=== PATIENT | male | born 2000 | race Caucasian/White ===

== ENCOUNTER 2020-01-28 19:02 | Emergency (ER) | payer BC ==
--- OUTSIDE RECORDS SUMMARY | 2020-01-28 19:04 | XMS REPORT | Continuity of Care Document ---
:2000 Author Organization [facility] Address [address] [place] [address] Care Team Providers Name Role Phone Asked, Pcp Primary Care Physician Unavailable Renetta Thompson PA-C Attending Clinician Problems This patient has no known problems. Allergies, Adverse Reactions, Alerts This patient has no known allergies or adverse reactions. Social History Social Habit Start Date Stop Date Quantity Comments Source Sex Assigned At [facility] ethodist Tobacco use and 2016-01-31 2016-01-31 Never used [facility]ist exposure 00:00:00 00:00:00 Alcohol intake 2016-01-31 2016-01-31 Current [facility] thodist 00:00:00 00:00:00 non-drinker of alcohol (finding) Smoking Status Start Date Stop Date Source Never smoker [facility] Medications Ordered Filled Start Stop Current Ordering Indication Dosage Frequency Signature Comments Components Source Medication Medication Date Date Medication? Clinician (SIG) Name Name acetaminoph 2015-03 Yes 325mg Q6H Take 325 [place] en 1-18 mg by [facility] (TYLENOL) 11:40: mouth st 325 MG 40 every 6 tablet (six) hours as needed for fever. naproxen 2015-03 Yes 250mg Q.5D Take 250 [place] (NAPROSYN) 1-18 mg by [facility] 250 MG 11:40: mouth 2 st tablet 07 (two) times a day with meals. Procedures This patient has no known procedures. Plan of Care Planned Activity Planned Date Details Comments Source Future Scheduled 2019-10-14 INFLUENZA VACCINE [facility] 00:00:00 [code = INFLUENZA VACCINE] Encounters Start End Encounter Admission Attending Care Care Encounter Source Date/Time Date/Time Type Type Clinicians Facility Department ID 2019-05-26 2019-05-26 Telephone [facility] [id number] 00:00:00 00:00:00 , Barbi Prescott [id number] Pediatric [id number] [facility] [id number] 2018-12-02 2018-12-02 Office [facility] [place] [facility] [id number] 12:42:00 14:09:53 Visit , Barbi Prescott [id number] Pediatric [id number] [facility] [id number] 225 Results This patient has no known results.
--- OUTSIDE RECORDS SUMMARY | 2020-01-28 19:04 | XMS REPORT | Clinical Summary ---
:2000 Author Organization [facility] Address [address] [place] [address] Care Team Providers Name Role Phone Asked, No Pcp Primary Care Provider Unavailable Allergies No Known Active Allergies Medications Medication Sig Dispensed Refills Start Date End Date Status naproxen (NAPROSYN) 250 Take 250 mg by 0 Active MG tablet mouth 2 (two) times a day with meals. acetaminophen (TYLENOL) Take 325 mg by 0 Active 325 MG tablet mouth every 6 (six) hours as needed for fever. Active Problems No known active problems Surgical History Surgery Date Site/Laterality Comments PATENT FORAMEN [facility] CLOSURE Social History Tobacco Use Types Packs/Day Years Used Date Never Smoker Smokeless Tobacco: Never Used Alcohol Use Drinks/Week oz/Week Comments No Sex Assigned at Date Recorded Not on file Growth Chart Information Age Height Weight Head Circum Date 15 years 172.7 cm (5' 8") 65.8 kg (145 lb) 016 15 years 170.2 cm (5' 7") 64.4 kg (142 lb) 016 Last Filed Vital Signs Not on file Plan of Treatment Health Maintenance Due Date Last Done Comments INFLUENZA VACCINE 10/14/2019 Results Not on fileafter 01/27/2019 Advance Directives For more information, please contact: [phone] Type Date Recorded Patient Student Advisor Explanati on Advance Directives, Living Will and Medical Power of Security Guard Supervisor
--- NOTE | 2020-01-28 20:14 | ER ---
Nurse's Notes 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 Burning with urination, ca1 urinary urgency x 1.5 - 2 wks. Denies fever. N/V today. Coronavirus screen: Client denies travel out of the [place] in the last 14 days. At this time, the client does not indicate any symptoms associated with coronavirus-19. Ebola Screen: Patient negative for fever greater than or equal to 101.5 degrees Fahrenheit, and additional compatible Ebola Virus Disease symptoms Patient denies exposure to infectious person. Patient denies travel to an Ebola-affected area in the 21 days before illness onset. No symptoms or risks identified at this time. Initial Sepsis Screen: Does the patient meet any 2 criteria? No. Patient's initial sepsis screen is negative. Does the patient have a suspected source of infection? No. Patient's initial sepsis screen is negative. Risk Assessment: Do you want to hurt yourself or someone else? Patient reports no desire to harm self or others. Onset of symptoms was January 28, 2020. 19:23 Method Of Arrival: Ambulatory ca1 19:23 Acuity: SANDI 3 ca1 Historical: - Allergies: 19:27 Keppra; ca1 - Home Meds: 19:27 venlafaxine oral oral [Active]; risperidone oral oral [Active]; ca1 - PMHx: 19:27 ADD/ADHD; ca1 - PSHx: 19:27 Heart Surgery; ca1 - Immunization history:: Adult Immunizations up to date, Flu vaccine is not up to date. Patient has never been vaccinated. - Social history:: Smoking status: Patient denies any tobacco usage or history of. Screenin:31 Abuse screen: Denies threats or abuse. Denies injuries from another. Nutritional lp1 screening: No deficits noted. Tuberculosis screening: No symptoms or risk factors identified. Fall Risk None identified. Assessment: 19:30 General: Appears in no apparent distress. comfortable, Behavior is appropriate for age. lp1 Pain: Complains of pain in left low back Pain currently is 6 out of 10 on a pain scale. Neuro: Level of Consciousness is awake, alert, obeys commands, Oriented to person, place, time, situation. Cardiovascular: Patient's skin is warm and dry. Respiratory: Respiratory effort is even, unlabored. GI: Abdomen is flat, Reports vomiting, x1. : Reports burning with urination, inability to void, pain in left flank(s), urinary frequency. EENT: No signs and/or symptoms were reported regarding the EENT system. Derm: Skin is pink, warm \T\ dry. Musculoskeletal: No deficits noted. 19:48 Reassessment: Patient unable to given urine specimen, provider okay for patient to lp1 drink water. 20:07 Reassessment: Urine specimen collected, noted to be orange in color; patient reports lp1 taking Azo OTC. Vital Signs: 19:23 BP 127 / 69; Pulse 61; Resp 17 S; Temp 97.9(TE); Pulse Ox 100% on R/A; Weight 70.31 kg ca1 (R); Height 5 ft. 9 in. (175.26 cm) (R); Pain 2/10; 19:23 Body Mass Index 22.89 (70.31 kg, 175.26 cm) ca1 ED Course: 19:03 Patient arrived in ED. ag5 19:06 [facility]C [facility] kb 19:06 Campos Cifuentes MD is Attending Physician. kb 19:19 Rosalie Flower, RN is Primary Nurse. lp1 19:26 Triage completed. ca1 19:27 Arm band placed on right wrist. ca1 19:31 Patient has correct armband on for positive identification. lp1 20:11 Urine Microscopic Only Sent. ds4 20:18 No provider procedures requiring assistance completed. Patient did not have IV access lp1 during this emergency room visit. Administered Medications: 20:18 Drug: Augmentin 875 mg Route: PO; lp1 20:18 Follow up: Response: Medication administered at discharge. lp1 Outcome: 20:13 Discharge ordered by . kb 20:18 Discharged to home ambulatory, with family. lp1 20:18 Condition: good 20:18 Discharge instructions given to patient, Instructed on discharge instructions, follow up and referral plans. medication usage, Demonstrated understanding of instructions, follow-up care, medications, Prescriptions given X 1. 20:18 Patient left the ED. lp1 Signatures: Laurie Prescott FNP-C FNP-Ckb Pena, Laura, RN RN lp1 Talon Milian ds4 Janey Cadena RN RN ca1 Miguel Fitzpatrick ag5
--- NOTE | 2020-01-28 20:14 | EDPHYS ---
Physician Documentation [facility] Name: Dino Rayo Age: 19 yrs Sex: Male : 2000 Arrival Date: 01/28/2020 Time: 19:03 Bed 5 Private MD: ED Physician Campos Cifuentes HPI: 01/27 20:20 This 19 yrs old Male presents to ER via Ambulatory with complaints of Kidney kb Problem. 20:20 The patient presents with urinary symptoms, dysuria, urinary frequency. Onset: The kb symptoms/episode began/occurred 1.5 week(s) ago. Modifying factors: The symptoms are alleviated by nothing, the symptoms are aggravated by urinating. Associated signs and symptoms: Pertinent positives: dysuria, Pertinent negatives: abdominal pain, constipation, diarrhea, fever, hematuria, nausea, vomiting. Severity of symptoms: At their worst the symptoms were moderate, in the emergency department the symptoms are unchanged. The patient has not experienced similar symptoms in the past. The patient has not recently seen a physician. Pt reports frequency, urgency and dysuria for 1.5 weeks. Denies penile drainage, unprotected sexual intercourse. . Historical: - Allergies: 19:27 Keppra; ca1 - Home Meds: 19:27 venlafaxine oral oral [Active]; risperidone oral oral [Active]; ca1 - PMHx: 19:27 ADD/ADHD; ca1 - PSHx: 19:27 Heart Surgery; ca1 - Immunization history:: Adult Immunizations up to date, Flu vaccine is not up to date. Patient has never been vaccinated. - Social history:: Smoking status: Patient denies any tobacco usage or history of. ROS: 20:18 Constitutional: Negative for fever, chills, and weight loss, Cardiovascular: Negative kb for chest pain, palpitations, and edema, Respiratory: Negative for shortness of breath, cough, wheezing, and pleuritic chest pain, Abdomen/GI: Negative for abdominal pain, nausea, vomiting, diarrhea, and constipation, MS/Extremity: Negative for injury and deformity, Skin: Negative for injury, rash, and discoloration, Neuro: Negative for headache, weakness, numbness, tingling, and seizure. 20:18 : Positive for urinary symptoms, urinary frequency, burning with urination. Exam: 20:18 Constitutional: This is a well developed, well nourished patient who is awake, alert, kb and in no acute distress. Head/Face: Normocephalic, atraumatic. Chest/axilla: Normal chest wall appearance and motion. Nontender with no deformity. No lesions are appreciated. Cardiovascular: Regular rate and rhythm with a normal S1 and S2. No gallops, murmurs, or rubs. Normal PMI, no JVD. No pulse deficits. Respiratory: Lungs have equal breath sounds bilaterally, clear to auscultation and percussion. No rales, rhonchi or wheezes noted. No increased work of breathing, no retractions or nasal flaring. Abdomen/GI: Soft, non-tender, with normal bowel sounds. No distension or tympany. No guarding or rebound. No evidence of tenderness throughout. Back: No spinal tenderness. No costovertebral tenderness. Full range of motion. Skin: Warm, dry with normal turgor. Normal color with no rashes, no lesions, and no evidence of cellulitis. MS/ Extremity: Pulses equal, no cyanosis. Neurovascular intact. Full, normal range of motion. Neuro: Awake and alert, GCS 15, oriented to person, place, time, and situation. Cranial nerves II-XII grossly intact. Motor strength 5/5 in all extremities. Sensory grossly intact. Cerebellar exam normal. Normal gait. Vital Signs: 19:23 BP 127 / 69; Pulse 61; Resp 17 S; Temp 97.9(TE); Pulse Ox 100% on R/A; Weight 70.31 kg ca1 (R); Height 5 ft. 9 in. (175.26 cm) (R); Pain 2/10; 19:23 Body Mass Index 22.89 (70.31 kg, 175.26 cm) ca1 MDM: 19:14 Patient medically screened. kb 20:18 Data reviewed: vital signs, nurses notes. Data interpreted: Pulse oximetry: on room air kb is 100 %. Interpretation: normal. Counseling: I had a detailed discussion with the patient and/or guardian regarding: the historical points, exam findings, and any diagnostic results supporting the discharge/admit diagnosis, lab results, the need for outpatient follow up, a family practitioner, to return to the emergency department if symptoms worsen or persist or if there are any questions or concerns that arise at home. 01/27 19:28 Order name: Urine Microscopic Only kb 11/15 20:11 Order name: Urine Dipstick--Ancillary (enter results); Complete Time: 20:17 ds4 01/27 19:28 Order name: Urine Dipstick-Ancillary (obtain specimen); Complete Time: 20:07 kb Administered Medications: 20:18 Drug: Augmentin 875 mg Route: PO; lp1 20:18 Follow up: Response: Medication administered at discharge. lp1 Disposition: 01/28 02:12 Co-signature as Attending Physician, Campos Cifuentes MD. 7 Disposition: 01/28/20 20:13 Discharged to Home. Impression: Urinary tract infection, site not specified. - Condition is Stable. - Discharge Instructions: Urinary Tract Infection, Adult, [id number]. - Prescriptions for Augmentin 875- 125 mg Oral Tablet - take 1 tablet by ORAL route every 12 hours for 10 days; 20 tablet. - Medication Reconciliation Form, Thank You Letter, Antibiotic Education, Prescription Opioid Use form. - Follow up: Emergency Department; When: As needed; Reason: Worsening of condition. Follow up: Private Physician; When: 2 - 3 days; Reason: Recheck today's complaints, Continuance of care, Re-evaluation by your physician. Signatures: Dispatcher [employer] EDLaurie Cifuentes, AMRITA-C SAVE ALL OPERATOR-Rosalie Sharma RN RN [facility] Janey Cadena RN RN [facility] Campos Cifuentes MD MD [facility] Corrections: (The following items were deleted from the chart) 01/27 20:18 20:13 01/28/2020 20:13 Discharged to Home. Impression: Urinary tract infection, site lp1 not specified. Condition is Stable. Forms are Medication Reconciliation Form, Thank You Letter, Antibiotic Education, Prescription Opioid Use. Follow up: Emergency Department; When: As needed; Reason: Worsening of condition. Follow up: Private Physician; When: 2 - 3 days; Reason: Recheck today's complaints, Continuance of care, Re-evaluation by your physician. kb
[2020-01-28 20:16] LABS: Urine Blood NEGATIVE (NEG); Urine Glucose 1+ (NEG); Urine Protein NEGATIVE (NEG)
[2020-01-28 20:19] LABS: Urine Bacteria 20-50 /HPF (NONE SEEN); Urine Culture Reflex Order REFLEXED; Urine RBC <5 /HPF (NONE SEEN)
[2020-01-28] MEDS ORDERED: AMOX/K CLAV 875 MG TAB ONE (20:29)
[2020-01-28 22:36] VITALS: BP 127/69; TEMP 97.9; O2SAT 100
== END 2020-01-28 20:18 | disposition home or self-care (01) ==
LOC: ER 19:02
DX: N39.0 Urinary tract infection, site not specified (principal); F90.9 Attention-deficit hyperactivity disorder, unspecified type; Z88.8 Allergy status to other drugs, medicaments and biological substances
CPT/HCPCS: 81003; 81015; 87086; 87088; 99283